=== PATIENT | female | born 1945 | race American Indian/Alaskan Native ===

== ENCOUNTER 2017-02-04 11:33 | Day surgery (SDC) | payer MEDICARE, OTHER ==
[2017-02-04] MEDS ORDERED: ISOPTO CARPINE ONE (12:10)
[2017-02-04] MEDS ORDERED: TETRACAINE 0.5% ONE (12:10)
[2017-02-04] MEDS ORDERED: GONAK ONE (12:10)
[2017-02-04] MEDS ORDERED: GONAK OD ONE (12:12)
[2017-02-04] MEDS ORDERED: TETRACAINE 0.5% OD ONE (12:12)
[2017-02-04] MEDS ORDERED: ISOPTO CARPINE OD ONE (12:12)
[2017-02-04] MEDS ORDERED: IOPIDINE OD ONE (12:12)
== END 2017-02-04 11:34 | disposition home or self-care (01) ==
LOC: OR 11:33
PROVIDERS: ATTEND Ophthalmology
DX: H40.20X0 Unspecified primary angle-closure glaucoma, stage unspecified (principal)

== ENCOUNTER 2017-02-11 11:11 | Day surgery (SDC) | payer MEDICARE, OTHER ==
[2017-02-11] MEDS ORDERED: IOPIDINE ONE (11:51)
[2017-02-11] MEDS ORDERED: TETRACAINE 0.5% ONE (11:52)
[2017-02-11] MEDS ORDERED: ISOPTO CARPINE ONE ×4 (11:52→12:14)
[2017-02-11] MEDS ORDERED: GONAK ONE (11:53)
[2017-02-11] MEDS ORDERED: ISOPTO CARPINE OS ONE (12:20)
[2017-02-11] MEDS ORDERED: IOPIDINE OS ONE (12:20)
[2017-02-11] MEDS ORDERED: TETRACAINE 0.5% OS ONE (12:43)
[2017-02-11 12:48] VITALS: BP 140/78
[2017-02-11] MEDS ORDERED: GONAK OS ONE (13:07)
== END 2017-02-11 13:02 | disposition home or self-care (01) ==
LOC: OR 11:11
PROVIDERS: ATTEND Ophthalmology
DX: H40.20X0 Unspecified primary angle-closure glaucoma, stage unspecified (principal)